=== PATIENT | male | born 1995 | race Two or more races ===

== ENCOUNTER 2018-08-02 13:02 | Emergency (ER) | payer MEDICAID ==
[~2018-08-02] VITALS: Ht 182.9 cm; Wt 77.1 kg
--- NOTE | 2018-08-02 13:02 | NUR ---
SEEN AND EXAMINED BY BELLE MELCHOR
[2018-08-02 13:12] VITALS: BP 132/67
[2018-08-02] MEDS ORDERED: KETOROLAC TROMETHAMINE INJ 60 MG/2 ML VIAL IM ONE ×2 (13:30→13:35)
[2018-08-02] MEDS ORDERED: HYDROCODONE/APAP 5/325MG 1 EACH TABLET PO ONE (13:30)
[2018-08-02] MEDS ORDERED: HYDROCODONE/APAP 5/325MG 1 EACH TABLET ONE (13:35)
--- NOTE | 2018-08-02 14:21 | NUR ---
Patient discharged to home in stable condition. Written and verbal after care instructions given. Patient verbalizes understanding of instruction.
== END 2018-08-02 14:22 | disposition home or self-care (01) ==
LOC: ER 13:02
DX: M25.562 Pain in left knee (principal); Z98.890 Other specified postprocedural states; Z60.2 Problems related to living alone
CPT/HCPCS: 96372; 99283; J1885